=== PATIENT | male | born 1985 | race African-American/Black ===

== ENCOUNTER → 2020-12-30 | Day surgery (SDC) | payer OTHER ==
[2020-12-28 14:44] VITALS: BMI 27.6
[~2020-12-30] MED LIST: Bupivacaine PF 0.5% 30 ML VIAL ONE; Dexamethasone 20 MG/5 ML VIAL ONE; EPINEPHrine 1 MG/ML AMP ONE; Fentanyl 100 MCG/2 ML VIAL ONE; Glycopyrrolate 0.2 MG/ML 5 ML SYRINGE ONE; HYDROcodone/Acetaminophen 5/325 mg Tablet PO PRN; HYDROmorphone 0.5 MG/0.5 ML SYRINGE ONE; Labetalol HCl 100 MG/20 ML VIAL ONE; Lidocaine 1% MPF 2 ML VIAL ONE; Lidocaine 1% PF 5 ML VIAL ONE; Lidocaine 2% Jelly 5 ML TUBE ONE; Midazolam HCl 2 mg/2 ml Vial ONE; Ondansetron PF 4 MG/2 ML Vial ONE; PROPOFOL 20 ML ONE; Rocuronium Bromide 10 MG/ML (10ML VIAL) ONE; ceFAZolin 2 GM/DEX 5% 100 ML BAG ONE
== END | disposition home or self-care (01) ==
LOC: CSHSDC 11:00
PROVIDERS: ATTEND Surgery
PROC: 0YU54JZ Supplement Right Inguinal Region with Synthetic Substitute, Percutaneous Endoscopic Approach (ICD-10-PCS; principal; 2020-12-30)
DX: K40.90 Unilateral inguinal hernia, without obstruction or gangrene, not specified as recurrent (principal); F17.210 Nicotine dependence, cigarettes, uncomplicated; Z79.899 Other long term (current) drug therapy
CPT/HCPCS: J0171; J1100; J1170; J2250; J2405; J2704; J3010; S0020

== ENCOUNTER → 2020-12-30 | Day surgery (SDC) | payer OTHER ==
[2020-12-27 23:44] LABS: SARS-CoV-2 PCR by NAA Not Detected (NotDetected)
== END ==
LOC: CSHLAB 12-27 12:01
PROVIDERS: ATTEND Surgery
DX: Z01.812 Encounter for preprocedural laboratory examination (principal); Z20.822 Contact with and (suspected) exposure to COVID-19
CPT/HCPCS: U0003; U0005